=== PATIENT | female | born 1980 ===

== ENCOUNTER 2017-12-09 12:24 | Inpatient (IN) | payer OTHER ==
[2017-12-09] VITALS (11 sets, daily range): BP systolic 96–118; BP diastolic 63–80; PULSE 59–100; TEMP 97.7–98.3
[~2017-12-09] VITALS: Ht 157.5 cm; Wt 58.6 kg
[2017-12-09] MEDS ORDERED: PRENATAL MVI (13:40)
[2017-12-09] MEDS ORDERED: FERRO-TIME325 MG PO (13:41)
[2017-12-09 14:13] LABS: BASO % 0.3 % (0.0-2.0); EOS % 0.2 % (0-4.0); GRAN # 7.8 (1.4-6.5); GRAN % 77.7 % (42.2-75.2); HEMATOCRIT 42.2 % (37.0-47.0); HEMOGLOBIN 14.3 g/dl (12.5-16.0); LYMPH # 1.7 (1.2-3.4); LYMPH % 17.2 % (20.0-51.0); MEAN CELL VOLUME 92 fl (80.0-100.0); MEAN CORPUSCULAR HEMOGLOBIN 31 pg (27.0-31.0); MEAN CORPUSCULAR HGB CONC 34 g/dl (33.0-37.0); MEAN PLATELET VOLUME 10.9 fl (7.4-10.4); MONO # 0.4 (0.1-0.6); MONO % 4.2 % (1.7-9.3); PLATELET COUNT 187 K/mm3 (130-400); RED BLOOD COUNT 4.61 M/mm3 (4.10-5.30); REDCELL DISTRIBUTION WIDTH-CV 13.4 % (11.5-14.5)
[2017-12-10 07:38] VITALS: BP 108/72; PULSE 87; TEMP 98.5
[2017-12-10] MEDS ORDERED: IBU600 MG PO (10:44)
[2017-12-10 17:24] VITALS: BP 117/70; PULSE 96; TEMP 97.6
[2017-12-10 19:00] VITALS: BP 107/69; PULSE 89; TEMP 98.1
[2017-12-11 09:03] VITALS: BP 102/66; PULSE 99; TEMP 97.9
== END 2017-12-11 12:55 | disposition home or self-care (01) | DRG 775 ==
LOC: LDRO 12:24 → LDR 12:30 → OB 12:30
PROVIDERS: Obstetrics & Gynecology
PROC: 10E0XZZ Delivery of Products of Conception, External Approach (ICD-10-PCS; principal; 2017-12-09)
PROC: 0HQ9XZZ Repair Perineum Skin, External Approach (ICD-10-PCS; 2017-12-09)
DX: O62.3 Precipitate labor (principal); O70.0 First degree perineal laceration during delivery; Z3A.39 39 weeks gestation of pregnancy; Z37.0 Single live birth
CPT/HCPCS: J2590; J7120